=== PATIENT | female | born 1995 | race Caucasian/White ===

== ENCOUNTER 2018-01-01 14:09 | Emergency (ER) | payer OTHER | END 2018-01-01 16:10 | disposition home or self-care (01) | LOC: ER 16:10 | DX: S93.402A Sprain of unspecified ligament of left ankle, initial encounter (principal); S93.602A Unspecified sprain of left foot, initial encounter; F15.10 Other stimulant abuse, uncomplicated; X50.9XXA Other and unspecified overexertion or strenuous movements or postures, initial encounter; Y93.89 Activity, other specified; Y99.8 Other external cause status; Y92.89 Other specified places as the place of occurrence of the external cause | CPT/HCPCS: 29515; 73610; 73630; 93971; 99284-25 ==

== ENCOUNTER 2018-01-14 18:07 | Emergency (ER) | payer OTHER ==
[2018-01-14 18:46] LABS: URINE HCG POC HCG NEGATIVE (Negative)
[2018-01-14 18:52] LABS: BILIRUBIN,URINE NEGATIVE (NEG); CLARITY,URINE CLEAR; COLOR,URINE YELLOW; GLUCOSE,URINE NEGATIVE (NEG); NITRITE,URINE NEGATIVE (NEG); PH,URINE 5.5; PROTEIN,URINE NEGATIVE (NEG-TRACE); UROBILINOGEN,URINE 0.2 mg/dL (0.2 mg/dL)
[2018-01-14] MEDS: IV NORMAL SALINE 1000ML BAG 1,000 ML IV (19:10)
[2018-01-14 19:11] LABS: ADD MAN DIFF? NO
[2018-01-14 19:16] LABS: BASO % 0 % (0-3); EOS # 0.1 x10^3/uL (0.0-0.7); EOS % 1 % (0-3); HEMATOCRIT 44.7 % (36.0-47.0); HEMOGLOBIN 15.3 g/dL (12.0-15.5); LYMPH # 2.7 x10^3/uL (1.0-4.8); LYMPH % 22 % (24-48); MEAN CORPUSCULAR HEMOGLOBIN 29 pg (25-35); MEAN CORPUSCULAR HGB CONC 34 g/dL (31-37); MEAN CORPUSCULAR VOLUME 84 fL (79-100); MONO # 1.2 x10^3/uL (0.0-1.1); MONO % 10 % (0-9); NEUT # 8.5 x10^3uL (1.8-7.7); NEUT % 68 % (31-73); PLATELET COUNT 353 x10^3/uL (140-400); RED BLOOD COUNT 5.36 x10^6/uL (3.50-5.40); RED CELL DISTRIBUTION WIDTH 13.9 % (11.5-14.5); WHITE BLOOD COUNT 12.6 x10^3/uL (4.0-11.0)
[2018-01-14 19:19] LABS: BACTERIA,URINE FEW /HPF (0-FEW); SQUAMOUS EPITHELIAL CELL,UR MOD /LPF
[2018-01-14 19:21] LABS: ANION GAP 9 (6-14); BLOOD UREA NITROGEN 12 mg/dL (7-20); CALCIUM 9.9 mg/dL (8.5-10.1); CARBON DIOXIDE 28 mmol/L (21-32); CHLORIDE 102 mmol/L (98-107); CREATININE 0.7 mg/dL (0.6-1.0); GFR 103.7; GLUCOSE 100 mg/dL (70-99); POTASSIUM 4.1 mmol/L (3.5-5.1); SODIUM 139 mmol/L (136-145)
[2018-01-14 19:26] LABS: ALBUMIN 4.3 g/dL (3.4-5.0); ALK PHOS 96 U/L (46-116); ALT (SGPT) 25 U/L (14-59); AST (SGOT) 16 U/L (15-37); DIRECT BILIRUBIN 0.1 mg/dL (0.0-0.2); LIPASE 111 U/L (73-393); TOTAL PROTEIN 8.4 g/dL (6.4-8.2)
[2018-01-14 19:45] LABS: TOTAL BILIRUBIN 0.4 mg/dL (0.2-1.0)
== END 2018-01-14 22:29 | disposition home or self-care (01) ==
LOC: ER 18:07
DX: R10.9 Unspecified abdominal pain (principal); R11.0 Nausea
CPT/HCPCS: 36415; 76830; 76856; 80048; 80076; 81001; 81025; 83690; 85025; 87491; 87591; 99285-25; J7030; Q0111